=== PATIENT | female | born 1995 | race Caucasian/White ===

== ENCOUNTER 2020-06-04 21:32 | Emergency (ER) | payer OTHER ==
[~2020-06-04] VITALS: Ht 172.7 cm; Wt 127.2 kg
[2020-06-04 21:40] VITALS: BP 144/91
--- NOTE | 2020-06-04 21:45 | PHYS DOC ---
Adult General Chief Complaint Chief Complaint: SHOULDER INJURY HPI HPI Patient is a 24-year-old female patient presenting to the ED today with complaints of 2-3 out of 10 right shoulder pain that began a couple minutes ago. Patient states the was trying to pull her right upper extremity to help her get out of the couch and accidentally yanked her right upper extremity. Patient states the pain is worse on dangling the right upper extremity. Denies anything specifically relieving the pain. Describes the pain as sharp and intermittent. (JESUSITA BALLARD APRN) Review of Systems Review of Systems Constitutional: Denies fever or chills [] Musculoskeletal: Reports right shoulder pain Integument: Denies rash or skin lesions [] Neurologic: Denies headache, focal weakness or sensory changes [] All other systems were reviewed and found to be within normal limits, except as documented in this note. (JESUSITA BALLARD APRN) Physical Exam Physical Exam Constitutional: Well developed, well nourished, no acute distress, non-toxic appearance. [] Skin: Warm, dry, no erythema, no rash. [] Back: No tenderness, no CVA tenderness. [] Extremities: Right upper extremity with no obvious deformity. Limited passive range of motion to the right shoulder. Adequate range of motion to the right hand and fingers. Adequate radial, medial, ulnar sensation to the right radial pulse. Cap refill less than 2 seconds the right fingers Neurologic: Alert and oriented X 3, normal motor function, normal sensory function, no focal deficits noted. [] Psychologic: Affect normal, judgement normal, mood normal. [] (JESUSITA BALLARD APRN) EKG EKG [] (JESUSITA BALLARD APRN) Radiology/Procedures Radiology/Procedures [] (JESUSITA BALLARD APRN) Heart Score Risk Factors: Risk Factors: DM, Current or recent (<one month) smoker, HTN, HLP, family history of CAD, obesity. Risk Scores: Risk Factors: DM, Current or recent (<one month) smoker, HTN, HLP, family history of CAD, obesity. (JESUSITA BALLARD APRN) Course & Med Decision Making Course & Med Decision Making Pertinent Labs and Imaging studies reviewed. (See chart for details) This is a 24-year-old female patient presenting to the ED today with right shoulder pain that began after the yanked her right upper extremity. Right shoulder x-rays interpreted by Dr. Trinidad negative for any acute findings. Ice elevation encouraged. Full range of motion encouraged. OTC pain relievers. Follow-up with orthopedic doctor in 1 week if pain persist (JESUSITA BALLARD APRN) Dragon Disclaimer Dragon Disclaimer This electronic medical record was generated, in whole or in part, using a voice recognition dictation system. (JESUSITA BALLARD APRN) Attending Co-Sign The patient was seen and interviewed as well as examined at the bedside. The chart was reviewed. The case was discussed. Agree with the plan of care. (MERCEDEZ TRINIDAD DO) Departure Departure: Impression: Primary Impression: Sprain of right shoulder Disposition: DC HOME SELF CARE/HOMELESS Condition: STABLE Referrals: PCP,UNKNOWN (PCP) JOSEF ADAMS MD follow up in 1 week as needed Patient Instructions: Shoulder Sprain Additional Instructions: You were seen for right shoulder pain, your right shoulder x-rays are negative for any acute findings. Ice elevate the extremity. Try and take the extremity through full range of motion several times a day. Take [id number] pain relievers as needed for pain. Problem Qualifiers Primary Impression: Sprain of right shoulder Encounter type: initial encounter Shoulder sprain type: unspecified sprain Qualified Codes: S43.401A - Unspecified sprain of right shoulder joint, initial encounter JESUSITA BALLARD APRN Jun 04, 2020 21:45 MERCEDEZ TRINIDAD DO Jun 05, 2020 00:09
--- NOTE | 2020-06-04 22:11 | RAD ---
Exam: Right shoulder 3 views INDICATION: Pain TECHNIQUE: Frontal view of the right shoulder with internal and external rotation and transscapular Y views. Comparisons: None FINDINGS: Bone mineralization is normal. No acute or healed fractures. Soft tissues are unremarkable. Joint spaces are well-maintained. IMPRESSION: No acute osseous abnormality. Electronically signed by: Mukund Bolden MD (06/04/2020 10:08 PM) [place]
== END 2020-06-04 22:08 | disposition home or self-care (01) ==
LOC: ER 21:32
DX: S43.401A Unspecified sprain of right shoulder joint, initial encounter (principal); X50.9XXA Other and unspecified overexertion or strenuous movements or postures, initial encounter; Y93.89 Activity, other specified; Y92.89 Other specified places as the place of occurrence of the external cause; Y99.8 Other external cause status
CPT/HCPCS: 73030; 99283

== ENCOUNTER 2021-08-04 18:50 | Emergency (ER) | payer OTHER ==
[~2021-08-04] VITALS: Ht 162.6 cm; Wt 111.8 kg
--- NOTE | 2021-08-04 19:17 | PHYS DOC ---
Past History Past Medical History: No Pertinent History Past Surgical History: No Surgical History Alcohol Use: None Adult General Chief Complaint Chief Complaint: ABDOMINAL PAIN HPI HPI Patient is a 25-year-old female, otherwise healthy presents with right upper quadrant abdominal pain on and off for the last 2 weeks, 7 out of 10 at its worst, dull and achy in nature with no radiation. States that shortly after eating this evening the pain began again and has been going on about 2 hours. States has had 2 episodes of nonbloody nonbilious emesis. Denies recent traumas, travels, illness, fevers, chest pain, shortness of breath, dysuria, hematuria, diarrhea or blood in stool Review of Systems Review of Systems Review of systems otherwise unremarkable except noted in HPI Allergies Allergies Allergies Coded Allergies Type Severity Reaction Last Updated Verified No Known Drug Allergies 06/04/20 No Physical Exam Physical Exam Constitutional: Well developed, well nourished, no acute distress, non-toxic appearance. [] HENT: Normocephalic, atraumatic, bilateral external ears normal, oropharynx moist, no oral exudates, nose normal. [] Eyes: PERRLA, EOMI, conjunctiva normal, no discharge. [] Neck: Normal range of motion, no tenderness, supple, no stridor. [] Cardiovascular:Heart rate regular rhythm, no murmur [] Lungs & Thorax: Bilateral breath sounds clear to auscultation [] Abdomen: Bowel sounds normal, soft, no tenderness, no masses, no pulsatile masses. [] Skin: Warm, dry, no erythema, no rash. [] Back: No tenderness, no CVA tenderness. [] Extremities: No tenderness, no cyanosis, no clubbing, ROM intact, no edema. [] Neurologic: Alert and oriented X 3, normal motor function, normal sensory function, no focal deficits noted. [] Psychologic: Affect normal, judgement normal, mood normal. [] EKG EKG [] Radiology/Procedures Radiology/Procedures [] Heart Score C/O Chest Pain: No Risk Factors: Risk Factors: DM, Current or recent (<one month) smoker, HTN, HLP, family history of CAD, obesity. Risk Scores: Risk Factors: DM, Current or recent (<one month) smoker, HTN, HLP, family history of CAD, obesity. Course & Med Decision Making Course & Med Decision Making Patient is a 25-year-old female who presents with right upper quadrant abdominal pain Vital signs notable for heart rate of 98 otherwise unremarkable. Physical exam noted above. Started on IV fluid hydration. Given antiemetics. Given pain medicine. Laboratory analysis notable for elevated AST and ALT. Right upper quadrant ultrasound findings suggestive of acute cholecystitis and hepatic steatosis Given findings on ultrasound and elevated LFTs there is concern for cholecystitis/choledocholithiasis. Made NPO. Given antibiotics. Discussed findings with patient and recommended transfer for surgical evaluation and need for cholecystectomy. Family grateful, verbalized understanding and agreed with plan of discharge. [] Dragon Disclaimer Dragon Disclaimer This electronic medical record was generated, in whole or in part, using a voice recognition dictation system. Departure Departure: Impression: Primary Impression: Right upper quadrant pain Additional Impressions: Acute cholecystitis Choledocholithiasis Disposition: 02 SHORT TERM HOSPITAL Admitting Physician: Era Gonzalez Condition: STABLE Referrals: PCP,NO (PCP) Scripts No Active Prescriptions or Reported Meds Problem Qualifiers LUIS ANGEL BYNUM MD Aug 04, 2021 19:17
[2021-08-04] MEDS ORDERED: ONDANSETRON PF 4 MG/2 ML VIAL. ONE (19:53)
[2021-08-04] MEDS ORDERED: METOCLOPRAMIDE HCL 10 MG/2 ML VIAL. ONE (19:53)
[2021-08-04 20:12] LABS: BASO % 0 % (0-3); EOS % 0 % (0-3); HEMATOCRIT 41.5 % (36.0-47.0); HEMOGLOBIN 13.8 g/dL (12.0-15.5); LYMPH # 1.3 x10^3/uL (1.0-4.8); LYMPH % 15 % (24-48); MEAN CORPUSCULAR HEMOGLOBIN 29 pg (25-35); MEAN CORPUSCULAR HGB CONC 33 g/dL (31-37); MEAN CORPUSCULAR VOLUME 88 fL (79-100); MONO # 0.4 x10^3/uL (0.0-1.1); MONO % 5 % (0-9); NEUT # 6.5 x10^3uL (1.8-7.7); NEUT % 79 % (31-73); PLATELET COUNT 266 x10^3/uL (140-400); RED CELL DISTRIBUTION WIDTH 13.7 % (11.5-14.5); WHITE BLOOD COUNT 8.2 x10^3/uL (4.0-11.0)
[2021-08-04] MEDS ORDERED: ONDANSETRON PF 4 MG/2 ML VIAL. IVP ONE (20:15)
[2021-08-04] MEDS ORDERED: METOCLOPRAMIDE HCL 10 MG/2 ML VIAL. IVP ONE (20:15)
[2021-08-04] MEDS ORDERED: IV RINGERS SOLUTION,LACTATED 1,000 ML IV ONE ×2 (20:15→23:00)
[2021-08-04 20:31] LABS: CALCIUM 8.2 mg/dL (8.5-10.1); CREATININE 0.5 mg/dL (0.6-1.0); GFR 151.6; POTASSIUM 4.4 mmol/L (3.5-5.1)
[2021-08-04 20:34] LABS: ALBUMIN 4.1 g/dL (3.4-5.0); ALBUMIN/GLOBULIN RATIO 1.1 (1.0-1.7); TOTAL BILIRUBIN 1.2 mg/dL (0.2-1.0); TOTAL PROTEIN 7.9 g/dL (6.4-8.2)
[2021-08-04 20:42] LABS: BILIRUBIN,URINE NEG (NEG); CLARITY,URINE HAZY; COLOR,URINE YELLOW; GLUCOSE,URINE NEG (NEG); NITRITE,URINE NEG (NEG)
[2021-08-04 20:43] LABS: BACTERIA,URINE MOD /HPF (0-FEW); SQUAMOUS EPITHELIAL CELL,UR MOD /LPF; WBC,URINE >40 /HPF (0-4)
[2021-08-04 22:30] VITALS: BP 132/79
--- NOTE | 2021-08-04 22:33 | RAD ---
EXAMINATION: US ABDOMEN OR LOWER BACK LIMITED INDICATION: 25 years, Female, right upper quadrant abdominal pain. COMPARISON: None TECHNIQUE: Grayscale, color Doppler and limited spectral Doppler images of the right upper quadrant w ere obtained. FINDINGS: LIVER: SIZE (LENGTH): 15.8 cm cm. ECHOGENICITY: Slightly increased echogenicity, consistent with hepatic steatosis. PARENCHYMA: Homogeneous echotexture. No discrete focal lesion. INTRAHEPATIC BILE DUCTS: Nondilated. PORTAL VEIN: Patent with normal hepatopedal flow. GALLBLADDER: GALLBLADDER WALL THICKNESS: 3.6 mm MORPHOLOGY: There is mild pericholecystic fluid. There is a positive sonographic Pulliam sign. LUMEN: Cholelithiasis with associated biliary sludge. COMMON BILE DUCT DIAMETER: 5.7 mm RIGHT KIDNEY: MEASURES: 10.4 cm in length. MORPHOLOGY/PARENCHYMA: Normal corticomedullary differentiation with no shadowing calculus or discrete masses. COLLECTING SYSTEM: No hydronephrosis. PANCREAS: VISUALIZED PORTIONS: Not well visualized due to overlying bowel gas. OTHER: RETROPERITONEUM, INFERIOR VENA CAVA: Normal caliber. FLUID:No free fluid. IMPRESSION: 1. Cholelithiasis with sonographic findings suspicious for acute cholecystitis. 2. Mild hepatic steatosis. Electronically signed by: Brian Britt DO (08/04/2021 10:31 PM) [facility]
[2021-08-04] MEDS ORDERED: MORPHINE SULFATE 4 MG/ML DISP.SYRIN. IV ONE (23:00)
[2021-08-04] MEDS ORDERED: PIPERACILLIN/TAZOBACTAM 4.5 GM in IV NORMAL SALINE 50ML 50 ML IV ONE (23:00)
[2021-08-04] MEDS ORDERED: IV NORMAL SALINE 50ML 50 ML ONE ×2 (23:04→23:05)
[2021-08-04] MEDS ORDERED: PIPERACILLIN/TAZOBACTAM 4.5 GM VIAL IV ONE ×2 (23:04→23:05)
[2021-08-05 00:46] LABS: INFLUENZA A PATIENT NEGATIVE (NEGATIVE); INFLUENZA B PATIENT NEGATIVE (NEGATIVE)
== END 2021-08-05 00:46 | disposition short-term general hospital (02) ==
LOC: ER 18:50
DX: K80.42 Calculus of bile duct with acute cholecystitis without obstruction (principal)
CPT/HCPCS: 36415; 76705; 80053; 81001; 81025; 83690; 85025; 87086; 96361; 96365; 96375; 99285; J2270; J2405; J2543; J2765; J3010; J7120; 87428